=== PATIENT | male | born 1965 | race Caucasian/White ===

== ENCOUNTER → 2023-03-20 11:05 | Outpatient (CLI) | payer OTHER, SELFPAY ==
[2023-03-20 12:56] LABS: BUN Creatinine Ratio 26.2 (6-22); Blood Urea Nitrogen 16 mg/dL (9-20); Calcium 9.8 mg/dL (8.4-10.2); Carbon Dioxide 29 mmol/L (22-32); Chloride 98 mmol/L (98-107); Estimated Glomerular Filt Rate > 60 mL/min (>60); Glucose 145 mg/dL (70-100); HEMOLYSIS < 15 (0-50); Potassium 3.4 mmol/L (3.4-5.1); Sodium 135 mmol/L (137-145)
[2023-03-20 13:26] LABS: Prostate Specific Antigen Scrn 1.05 ng/mL (0.1-4.0)
== END ==
PROVIDERS: PCP Family Medicine; Referring Provider Urology; Visit Provider Urology
DX: Z12.5 Encounter for screening for malignant neoplasm of prostate (principal); R31.0 Gross hematuria; R39.9 Unspecified symptoms and signs involving the genitourinary system; R31.21 Asymptomatic microscopic hematuria; Z72.0 Tobacco use; Z84.2 Family history of other diseases of the genitourinary system
CPT/HCPCS: 36415; 80048; 81002; G0103

== ENCOUNTER → 2023-03-26 09:20 | Outpatient (CLI) | payer OTHER, SELFPAY ==
--- NOTE | 2023-03-26 09:21 | DI.CT.S_ITS ---
PROCEDURE: CT ABDOMEN PELVIS WO/W CON INDICATIONS: Gross hematuria TECHNIQUE: Optional 5 mm thick noncontrast images acquired from the diaphragm to the symphysis pubis. After the administration of intravenous contrast, 5 mm thick images acquired from the diaphragm to the symphysis pubis after a 10-minute delay. 2 mm thick coronal and sagittal reformats were then performed of the kidneys and ureters. For radiation dose reduction, the following was used: automated exposure control, adjustment of mA and/or kV according to patient size. COMPARISON: [facility], CT, CT KUB, 11/22/2022, 7:19. FINDINGS: Image quality: Excellent. Lung bases: Lung bases are clear. Heart size is normal. Urinary system: Both kidneys are normal in size, without hydronephrosis or nephrolithiasis on pre-contrast images. No perinephric fat stranding. There is normal bilateral renal enhancement. 1.5 cm cyst present in the corticomedullary right upper pole. A subcentimeter cyst in the medial left lower pole. Renal calyces appear normal in morphology when filled with contrast. Opacified portions of both ureters demonstrate normal caliber. Arising from the superior wall of the urinary bladder, there is an irregular polypoid intraluminal mass approximately 1.6 by 1.3 by 2.0 cm. There is mild overlying bladder wall thickening. No bladder calculi. Other solid organs: The liver is normal size with mild diffuse hepatic steatosis. Normal gallbladder, biliary tree, pancreas, adrenal glands, and spleen. Peritoneum and bowel: Stomach and small bowel loops are normal caliber. Normal appendix. The distal colon is decompressed. The proximal colon appears normal. Nodes and vessels: No retroperitoneal or mesenteric adenopathy by size criteria. Aorta and inferior vena cava are normal in size. Abdominal wall: No ventral hernias. Pelvis: There is a single borderline left external iliac node measuring about 8 mm. No other adenopathy. No hernias. Prostate gland and seminal vesicles are normal. Bones: No suspicious bony lesions. No vertebral body compression fractures. IMPRESSION: Approximately 2 cm intraluminal bladder mass adherent to the superior wall suspicious for malignancy. Cystoscopy recommended. Development of a single borderline lymph node in the left external iliac chain. Mild hepatic steatosis. Dictated by: Peyton Akhtar M.D. on 03/26/2023 at 15:50 Approved by: Peyton Akhtar M.D. on 03/26/2023 at 16:01
== END ==
PROVIDERS: PCP Family Medicine; Referring Provider Urology; Visit Provider Urology
DX: N32.9 Bladder disorder, unspecified (principal); K76.0 Fatty (change of) liver, not elsewhere classified; R31.0 Gross hematuria; Z72.0 Tobacco use
CPT/HCPCS: 74178; Q9967

== ENCOUNTER 2023-04-02 08:42 | Day surgery (SDC) | payer OTHER, SELFPAY ==
[2023-04-01 08:31] VITALS: BMI 37.7
--- NOTE | 2023-04-02 | PATH_ITS ---
[facility] Accession Number: [id number] No. of containers..01 Tissue . 01 Material submitted: . bladder - POSTERIOR BLADDER TUMOR . 01 Diagnosis: A. Bladder, Posterior Tumor, Biopsy: Papillary urothelial carcinoma, predominantly low-grade with rare foci of high-grade morphology. Negative for definite invasive malignancy. Muscularis propria: Not present. . . COMMENT: In block A1, a rare cluster of urothelial cells superficial in the lamina propria, with irregular contours is present. This cluster does not demonstrate distinctive cytologic atypia from the low-grade neoplasia present in the overlying epithelium, and shows no desmoplasia around it. Furthermore, it disappears on the deeper sections. These features are not definitive for a superficially invasive carcinoma, and may be artifactual. . Dr. Parris Carpio and Dr. Anita Wang both reviewed this block and concur with the interpretation/diagnosis. MRV 04/18/2023 1911 Local . 01 Electronically signed: . Emilia Hurst MD, Pathologist NPI- [id number] . 01 Gross description: . POSTERIOR BLADDER TUMOR: Received in formalin are multiple fragment(s) of pak, soft tissue measuring 0.1 x 0.1 x 0.1 cm to 0.7 x 0.4 x 0.3 cm submitted entirely in 2 cassette(s) /SHELBI 04/04/2023 2254 Local . 01 Microscopic: . Deeper H/E levels are examined. . 01 Pathologist provided ICD-10: C67.9 . 01 CPT . 808636 Specimen Comment: A courtesy copy of this report has been sent to [phone] Performed at: 01 [facility], [facility] [address] [place] [address], [place], [place] [id number] MD Manish Lyons MD Phone: [phone]
[2023-04-02] MEDS: LACTATED RINGERS 1,000 ML 21 ML IV (09:20)
[2023-04-02 09:45] VITALS: BP 137/83; PULSE 83; RESP 16; TEMP 36.5; O2SAT 96; BMI 37.7
--- NOTE | 2023-04-02 10:55 | PM.PREOP ---
Pre-operative Note COVID-19 COVID-19 status: Not tested Interval Note History & Physical reviewed/Exam performed by Physician: Yes Changes to H&P: No
[2023-04-02] MEDS: CEFAZOLIN 2 GM/100 ML PREMIX 100 ML IV (11:20)
--- NOTE | 2023-04-02 11:30 | SUR.OPER ---
Lithotomy on padded OR bed, head on pillow, arms secured on padded arm boards at <90 degrees abduction. Legs secured in padded yellow fins stirrups.
[2023-04-02] MEDS: WATER FOR INJECTION,STERILE 20 ML, mitoMYcin 20 MG INTRAVESIC (11:38)
[2023-04-02 12:05] VITALS: BP 125/82; PULSE 86; RESP 15; TEMP 36.5; O2SAT 95
[2023-04-02 12:10] VITALS: BP 109/63; PULSE 86; RESP 16; O2SAT 97
[2023-04-02 12:15] VITALS: BP 131/90; PULSE 79; RESP 15; O2SAT 92
[2023-04-02] MEDS: OXYBUTYNIN 5 MG TABLET PO (12:25)
[2023-04-02] MEDS: PHENAZOPYRIDINE 100 MG TABLET 200 MG PO (12:25)
[2023-04-02 12:30] VITALS: BP 139/93; PULSE 86; RESP 20; O2SAT 96
--- NOTE | 2023-04-02 12:31 | P.OP_ITS ---
Procedure & Clinicians Procedure: Transurethral resection of bladder tumor medium (3 cm) and mitomycin instillation Same procedure as scheduled: Yes Indications: This 57-year-old male presented with complaints of hematuria and was found on imaging to have a 2-1/2-3 cm papillary lesion in his bladder and he presents at this time for resection and instillation of mitomycin. Surgeon: Aaron White Click Yes if Unassisted: Yes Anesthesia Type: General Operative Notes Findings: Findings: Urethral meatus is normal, urethra is normal with normal mucosa sphincter as well coapted prostate shows minimal obstructive character ureteral orifices in normal position with clear efflux. On the bladder floor cephalad directly across from the bladder neck is a 3 cm papillary lesion with some small studding of papillary or early papillary lesions around it. There are no other abnormalities within the bladder. At the end of the procedure all abnormalities had been removed and or fulgurated. Patient had a 22 [place] 5 cc Browning catheter left in place with 15 cc in the balloon mitomycin was instilled by close technique with chemo therapeutic catheter plug. Closure Type: not applicable Specimen(s): other (Bladder tumor fragments) Prosthetic devices, grafts, tissues, transplants, or devices: [address] [place] [address] Browning catheter with 15 cc in the balloon Applied: catheter (See above) Estimated Blood Loss (mL): 10 Blood products transfused: none Procedure in detail: Procedure in detail: After informed consent was obtained, the patient was identified and brought to the operating room where he is placed in supine position on the table. Once on the table anesthesia was induced to maintained. Ensuring an adequate level of anesthesia the patient was transitioned to the lithotomy position where he was prepped, draped, prepared for Transurethral procedure. After prepping, draping, ensuring an adequate level of anesthesia, time-out, ensuring the patient received antibiotics a 22 [place] cystoscope was passed through the urethral prostate in the bladder where cystoscopy performed. The cystoscope was then exchanged for the continuous-flow resectoscope and the tumor was resected. The margin and the abnormalities were then fulgurated. At this point all fragments were evacuated through the resectoscope. The bladder was then drained filled drained filled hemostasis remained good bladder was left full the scope was removed and the 22 [place] 5 cc Browning catheter was passed through the urethra prostate in the bladder without difficulty. The balloon was filled with 50 cc of sterile water and placed to gravity drainage of the bladder was drained. The chemotherapeutic plug was then placed in the Browning catheter and the mitomycin instilled by close technique. The patient was then awakened having tolerated the procedure well to be transferred to the postanesthesia care unit where after the indwelling time he will be discharged to home there were no complications. Complications: none Post-operative Condition: stable Disposition: PACU Plan for aftercare: Patient to be discharged home with Browning catheter to follow up my office in approximately 14 days.
[2023-04-02 12:45] VITALS: BP 124/70; PULSE 80; RESP 17; TEMP 36.6; O2SAT 98
== END 2023-04-02 14:00 | disposition home or self-care (01) ==
PROVIDERS: PCP Family Medicine; Referring Provider Urology; Visit Provider Urology
PROC: 0TBB8ZZ Excision of Bladder, Via Natural or Artificial Opening Endoscopic (ICD-10-PCS; CPT 52235; principal; 2023-04-02 10:15)
DX: C67.9 Malignant neoplasm of bladder, unspecified (principal); Z72.0 Tobacco use
CPT/HCPCS: 52235; J0690; J1100; J2250; J2405; J2704; J3010; J9280

== ENCOUNTER 2023-10-29 11:21 | Day surgery (SDC) | payer OTHER, SELFPAY ==
[2023-10-24 09:45] VITALS: BMI 38.7
--- NOTE | 2023-10-29 | PATH_ITS ---
[facility] Accession Number: [id number] No. of containers..01 Tissue . 01 Material submitted: . bladder - RIGHT POSTERIOR LATERAL BLADDER TUMOR . 01 Diagnosis: RIGHT POSTERIOR LATERAL BLADDER, BIOPSY: Urothelial mucosa with no diagnostic abnormality. No evidence of neoplasm. Muscularis propria present. Additional step sections examined. MRV 11/05/2023 1319 Local . 01 Electronically signed: . Godwin Jo MD, PhD, Pathologist NPI- [id number] . 01 Gross description: . Received in formalin with two patient identifiers and posterior lateral bladder tumor, is a single pak soft tissue fragment 0.4 cm in greatest dimension. Submitted entirely in cassette A1. ([id number]) /CARLITOS 10/30/2023 0930 Local . 01 Pathologist provided ICD-10: Z12.6 . 01 CPT . 703392 Specimen Comment: A courtesy copy of this report has been sent to [phone] Performed at: [address] [facility] [address], [place], [place] [id number] MD Manish Lyons MD Phone: [phone]
[2023-10-29 12:48] VITALS: BP 137/86; PULSE 79; RESP 18; TEMP 36.5; O2SAT 96; BMI 38.7
[2023-10-29] MEDS: LACTATED RINGERS 1,000 ML 21 ML IV (13:10)
[2023-10-29] MEDS: CEFAZOLIN 2 GM/100 ML PREMIX 100 ML IV (13:38)
--- NOTE | 2023-10-29 13:38 | PM.PREOP ---
Pre-operative Note COVID-19 COVID-19 status: Not tested Interval Note History & Physical reviewed/Exam performed by Physician: Yes Changes to H&P: No
[2023-10-29 14:18] VITALS: BP 131/90; PULSE 76; RESP 15; TEMP 36.6; O2SAT 93
--- NOTE | 2023-10-29 14:22 | PM.OP.1 ---
Procedure & Clinicians Procedure: Cystoscopy with Transurethral resection of bladder tumor small, fulguration of tumor base Same procedure as scheduled: Yes Indications: This 58-year-old male with known bladder cancer presented for surveillance cystoscopy was found to have a small papillary recurrence just lateral to and caudad to the right ureteral orifice. No other tumors were noted within the bladder. He presents this time for Transurethral resection of bladder tumor small. Surgeon: Aaron White Click Yes if Unassisted: Yes Anesthesia Type: General Operative Notes Findings: Urethral meatus is normal urethra is normal along its length with normal mucosa sphincter as well coapted prostate shows moderate obstructive character. The ureteral orifices in normal position with clear efflux. There is the small papillary bladder tumor as previously noted above. Within the bladder there is scar but no other evidence of recurrent tumor is noted. At the end of the procedure hemostasis was good in the tumor was completely resected. There were no other abnormalities noted. Closure Type: not applicable Specimen(s): other (Posterolateral right bladder tumor small) Prosthetic devices, grafts, tissues, transplants, or devices: None Estimated Blood Loss (mL): 5 Procedure in detail: Procedure in detail: After informed consent was obtained, the patient was identified brought to the operating room placed in supine position on table where anesthesia was induced to maintain. Ensuring an adequate level of anesthesia the patient was transitioned to the lithotomy position where he was prepped, draped and prepared for Transurethral procedure. After prepping, draping, ensuring an adequate level of anesthesia, time-out and administration of antibiotics 22 [place]arusian cystoscope was passed through the urethral prostate and into bladder where cystoscopy was performed. With the findings in hand the biopsy forceps was inserted and the tumor resected and removed. The bladder was drained the specimen was forwarded to pathology in formalin the standard bridge was returned and the steerable Bugbee electrode was inserted and the points of bleeding were controlled and the margin around the tumor was fulgurated. The bladder was drained filled drain filled hemostasis remained good and the bladder was drained the scope was removed the patient was awakened having tolerated the procedure well to be transferred to the postanesthesia care unit for recovery there were no complications. Complications: none Post-operative Condition: stable Disposition: PACU Plan for aftercare: After recovery the patient is to be discharged to home to follow up my office in 10-14 days.
[2023-10-29 14:23] VITALS: BP 127/78; PULSE 77; RESP 15; O2SAT 91
--- NOTE | 2023-10-29 14:24 | SUR.OPER ---
Lithotomy on padded OR bed, head on pillow, arms secured on padded arm boards at <90 degrees abduction. Legs secured in padded yellow fins stirrups.
[2023-10-29 14:28] VITALS: BP 115/87; PULSE 75; RESP 14; O2SAT 95
[2023-10-29 14:34] VITALS: BP 147/95; PULSE 71; RESP 15; O2SAT 96
[2023-10-29 14:38] VITALS: BP 152/92; PULSE 72; RESP 12; TEMP 36.3; O2SAT 93
[2023-10-29] MEDS: PHENAZOPYRIDINE 100 MG TABLET 200 MG PO (14:39)
== END 2023-10-29 14:58 | disposition home or self-care (01) ==
PROVIDERS: PCP Family Medicine; Referring Provider Urology; Visit Provider Urology
PROC: 0TBB8ZZ Excision of Bladder, Via Natural or Artificial Opening Endoscopic (ICD-10-PCS; CPT 52234; principal; 2023-10-29 12:45)
DX: C67.9 Malignant neoplasm of bladder, unspecified (principal); I10 Essential (primary) hypertension; F17.210 Nicotine dependence, cigarettes, uncomplicated
CPT/HCPCS: 52234; J0330; J0690; J1100; J2250; J2405; J2704; J3010

== ENCOUNTER → 2024-10-07 11:36 | Outpatient (CLI) | payer OTHER, SELFPAY | PROVIDERS: PCP Family Medicine; Visit Provider Urology | DX: R39.9 Unspecified symptoms and signs involving the genitourinary system (principal) | CPT/HCPCS: 87086 ==

== ENCOUNTER 2024-10-13 10:56 | Day surgery (SDC) | payer OTHER, SELFPAY ==
[2024-10-05 13:09] VITALS: BMI 38.4
--- NOTE | 2024-10-13 | PATH_ITS ---
[facility] Accession Number: [id number] No. of containers..01 Tissue . 01 Material submitted: . bladder - POSTERIOR RIGHT BLADDER TUMOR . 01 Diagnosis: POSTERIOR RIGHT BLADDER TUMOR, BIOPSY: Papillary urothelial carcinoma, low grade, noninvasive. Muscularis propria present and uninvolved. MRV 10/15/2024 1514 Local . 01 Comment: As part of routine quality facilitator, Dr. Man has reviewed this case and agrees with the diagnosis above. . . 01 Electronically signed: . Godwin Jo MD, PhD, Pathologist NPI- [id number] . 01 Gross description: . Received in formalin with two identifiers and posterior right bladder tumor, is a single pak soft tissue fragment, 0.4 x 0.3 x 0.2 cm. Submitted intact in A1. ([id number]) /MRV 10/14/2024 2132 Local . 01 Pathologist provided ICD-10: C67.9 . 01 CPT . 629955 Specimen Comment: A courtesy copy of this report has been sent to [phone] Performed at: [address] [id number] MD Manish Lyons MD Phone: [phone]
[2024-10-13 11:35] VITALS: BMI 38.0
[2024-10-13 11:39] VITALS: BP 159/94; PULSE 82; RESP 16; TEMP 36.6; O2SAT 96
[2024-10-13] MEDS: LACTATED RINGERS 1,000 ML 21 ML IV (11:53)
--- NOTE | 2024-10-13 12:07 | PM.PREOP ---
Pre-operative Note COVID-19 COVID-19 status: Not tested Interval Note History & Physical reviewed/Exam performed by Physician: Yes Changes to H&P: No H&P completed within 30 days and has changed as indicated here:: H&P reviewed no changes. The procedure, risks, alternatives were once again discussed with the patient his questions were answered and he wishes to proceed. The risks to include but not limited to bleeding, infection, injury to surrounding structures, possible need for Browning catheter possible recurrence of tumor, possible bladder perforation, dysuria, gross hematuria, unforeseen and unpredictable consequences sequelae, anesthetic complications. With the his questions answered and voicing understanding of risks the patient wishes to proceed. Exam is unchanged from H and P dated 10/07/2024.
[2024-10-13] MEDS: CEFAZOLIN 2 GM/100 ML PREMIX 100 ML IV (13:00)
--- NOTE | 2024-10-13 13:10 | SUR.OPER ---
Lithotomy on padded OR bed, head on pillow, arms secured on padded arm boards at <90 degrees abduction. Legs secured in padded yellow fins stirrups.
[2024-10-13 13:21] VITALS: BP 133/76; PULSE 82; RESP 16; TEMP 36.4; O2SAT 96
--- NOTE | 2024-10-13 13:21 | PM.OP.1 ---
Operative Date/Time/Diagnoses Date of procedure: 10/13/24 Time of procedure: 13:21 Pre-op diagnosis: Recurrent bladder tumor (small) 5 mm Post-op diagnosis: same Procedure & Clinicians Procedure: TURBT small with fulguration Same procedure as scheduled: Yes Indications: This 59-year-old male with a known history of urothelial carcinoma came in for surveillance cystoscopy and was found to have a small recurrent tumor just cephalad and lateral to the right ureteral orifice. No other tumors were noted in his bladder he presents at this time for resection of the above tumor. Surgeon: Aaron White Click Yes if Unassisted: Yes Anesthesia Type: General Operative Notes Findings: Urethral meatus and urethra normal with normal mucosa. The sphincter as well coapted in the prostate exhibits moderate obstructive character. The right and left ureteral orifices in normal position with clear efflux just cephalad and lateral to the right ureteral orifice was a 5 mm papillary lesion consistent with urothelial carcinoma. There were multiple scars but no other tumors or abnormalities noted within the bladder. At the end of the procedure the tumor appeared completely resected. Closure Type: not applicable Specimen(s): other (Right posterolateral bladder tumor completely resected) Prosthetic devices, grafts, tissues, transplants, or devices: None Estimated Blood Loss (mL): 5 Blood products transfused: none Procedure in detail: Procedure in detail: After informed consent was obtained, the patient was identified brought to the operating room where he was placed in supine position on table. Once there anesthesia was induced and maintained. Ensuring an adequate level of anesthesia the patient was transitioned to the lithotomy position where he was prepped, draped, prepared for Transurethral of procedure. Once again ensuring an adequate level of anesthesia and after time-out, administration of antibiotics and sterile prepping and draping a 22 Polish cystoscope was passed through the urethra prostate and into the bladder where cystoscopy was performed. With the tumor once again identified the biopsy forceps was inserted and the tumor was resected. The Bugbee electrode was then inserted points of bleeding were controlled with the electrocautery and the base and margins were fulgurated. Once again cystoscopy was performed no other tumor was noted bladder was drained scope was removed patient was awakened having tolerated the procedure well. Be transferred to the postanesthesia care unit for recovery and then home. There were no complications Complications: none Post-operative Condition: stable Disposition: PACU Plan for aftercare: Patient to be discharged to home after recovery to follow up my office in 10-14 days.
[2024-10-13 13:26] VITALS: BP 126/82; PULSE 80; RESP 12; O2SAT 95
[2024-10-13 13:32] VITALS: BP 131/79; PULSE 76; RESP 10; TEMP 36.7; O2SAT 95
[2024-10-13 13:37] VITALS: BP 135/82; PULSE 73; RESP 11; O2SAT 95
== END 2024-10-13 13:54 | disposition home or self-care (01) ==
PROVIDERS: PCP Family Medicine; Referring Provider Urology; Visit Provider Urology
PROC: 0TBB8ZZ Excision of Bladder, Via Natural or Artificial Opening Endoscopic (ICD-10-PCS; CPT 52234; principal; 2024-10-13 14:00)
DX: C67.9 Malignant neoplasm of bladder, unspecified (principal)
CPT/HCPCS: 52234; J0330; J0690; J1100; J2250; J2405; J2704; J3010